=== PATIENT | female | born 1960 | race Two or more races ===

== ENCOUNTER 2023-01-22 09:11 | Inpatient (IN) | payer MEDICAID ==
[~2023-01-22] VITALS: Ht 165.1 cm; Wt 130.0 kg
[2023-01-22 10:01] LABS: Basophils # (auto) 0 10 ^3/uL (0-0.2); Basophils % (auto) 0.3 % (0.0-2.0); Eosinophils # (auto) 0 10 ^3/uL (0-0.8); Hematocrit 40.8 % (36.0-46.0); Hemoglobin 13.4 g/dL (12.2-16.2); Lymphocytes # (auto) 0.8 10 ^3/uL (0.4-5.4); Lymphocytes % (auto) 6.2 % (10.0-50.0); Mean Corpuscular Hemoglobin 30.9 pg (28.0-32.0); Mean Corpuscular Hgb Conc. 32.9 g/dL (32.0-36.0); Mean Corpuscular Volume 94.2 fL (80.0-100.0); Monocytes # (auto) 0.4 10 ^3/uL (0-1.3); Monocytes % (auto) 2.8 % (0.0-12.0); Neutrophils # (auto) 11.8 10 ^3/uL (1.6-8.6); Neutrophils % (auto) 90.7 % (37.0-80.0); Red Blood Cells 4.33 10^6/uL (4.0-5.20); Red Cell Distribution Width 14.3 % (11.8-14.3)
[2023-01-22 10:21] LABS: Alanine Aminotransferase 21 U/L (7-40); Alkaline Phosphatase 137 U/L (46-116); Anion Gap 7 (5-15); Blood Urea Nitrogen 20 mg/dL (9-23); Carbon Dioxide 27 mmol/L (20-30); Chloride 105 mmol/L (98-107); Glucose 138 mg/dL (74-106); Potassium 4.1 mmol/L (3.5-5.1); Sodium 139 mmol/L (136-145)
[2023-01-22 10:22] LABS: Aspartate Aminotransferase < 8 U/L (13-40); BUN/Creatinine Ratio 26.7 (10.0-20.0)
[2023-01-22 10:23] LABS: Bilirubin, Total 0.5 mg/dL (0.2-1.0); Total Protein 6.4 g/dL (5.7-8.2)
[2023-01-22 10:55] LABS: Albumin 4.4 g/dL (3.2-4.8)
[2023-01-22] MEDS ORDERED: SODIUM CHLORIDE 0.9% 1,000 ML IV ONE ×2 (11:45)
[2023-01-22] MEDS ORDERED: cefTRIAXone 1GM/50ML D5W 50 ML IV ONE (11:45)
[2023-01-22 11:51] VITALS: PULSE 99; RESP 18; O2SAT 100
[2023-01-22] MEDS ORDERED: DOCUSATE SOD 100 MG CAP PO PRN (13:45)
[2023-01-22] MEDS ORDERED: PANTOPRAZOLE 40 MG/10 ML VIAL INJ IV ONE (13:45)
[2023-01-22] MEDS ORDERED: HYDROcodone-ACET 5/325MG TAB PO PRN (13:45)
[2023-01-22] MEDS: SODIUM CHLORIDE 0.9% 1,000 ML IV SCH ×2 (13:45→20:31)
[2023-01-22] MEDS ORDERED: MORPHINE SULFATE INJ 2 MG/ml SYRG IV PRN (13:45)
[2023-01-22] MEDS ORDERED: ACETAMINOPHEN 325 MG TAB PO PRN (13:45)
[2023-01-22] MEDS: ONDANSETRON HCL 4 MG/2 ML VIAL IV PRN (13:55)
[2023-01-22] MEDS ORDERED: HYDRX10T PO (14:05)
[2023-01-22] MEDS ORDERED: METH2.5T PO (14:05)
[2023-01-22] MEDS ORDERED: ROSU1TAB14 PO (14:05)
[2023-01-22] MEDS ORDERED: ENAL1TAB48 PO (14:05)
[2023-01-22] MEDS ORDERED: FUR20T PO (14:05)
[2023-01-22] MEDS ORDERED: METHOTREXATE 2.5 MG TAB PO SCH (14:15)
[2023-01-22] MEDS ORDERED: HYDROmorphone HCL 2 MG/ML VL/or syr IV PRN (14:15)
[2023-01-22] MEDS: metroNIDAZOLE 500MG/100ML 100 ML IV SCH ×2 (14:37→22:45)
[2023-01-22] MEDS: ATORVASTATIN 20 MG TAB PO SCH (22:45)
[2023-01-22] MEDS: hydrOXYzine HCL 10 MG TAB PO SCH (22:46)
[2023-01-23] MEDS: SODIUM CHLORIDE 0.9% 1,000 ML IV SCH ×4 (03:29→22:43)
[2023-01-23 05:04] LABS: Basophils # (auto) 0 10 ^3/uL (0-0.2); Basophils % (auto) 0.2 % (0.0-2.0); Eosinophils # (auto) 0 10 ^3/uL (0-0.8); Eosinophils % (auto) 0.1 % (0.0-7.0); Hematocrit 36.7 % (36.0-46.0); Hemoglobin 12.2 g/dL (12.2-16.2); Lymphocytes # (auto) 1.3 10 ^3/uL (0.4-5.4); Lymphocytes % (auto) 16.1 % (10.0-50.0); Mean Corpuscular Hemoglobin 31.4 pg (28.0-32.0); Mean Corpuscular Hgb Conc. 33.4 g/dL (32.0-36.0); Mean Corpuscular Volume 94.1 fL (80.0-100.0); Monocytes # (auto) 0.3 10 ^3/uL (0-1.3); Monocytes % (auto) 3.9 % (0.0-12.0); Neutrophils # (auto) 6.5 10 ^3/uL (1.6-8.6); Neutrophils % (auto) 79.7 % (37.0-80.0); Red Cell Distribution Width 14.2 % (11.8-14.3); White Blood Cell 8.2 10^3/uL (4.4-10.8)
[2023-01-23 05:22] LABS: Alanine Aminotransferase 18 U/L (7-40); Albumin 3.7 g/dL (3.2-4.8); Alkaline Phosphatase 116 U/L (46-116); Anion Gap 5 (5-15); Aspartate Aminotransferase < 8 U/L (13-40); BUN/Creatinine Ratio 20.3 (10.0-20.0); Bilirubin, Total 0.4 mg/dL (0.2-1.0); Blood Urea Nitrogen 14 mg/dL (9-23); Calcium 8.3 mg/dL (8.7-10.4); Carbon Dioxide 27 mmol/L (20-30); Chloride 107 mmol/L (98-107); Glucose 129 mg/dL (74-106); Sodium 139 mmol/L (136-145); Total Protein 5.5 g/dL (5.7-8.2)
[2023-01-23 05:42] LABS: Triglycerides 114 mg/dL (< 150)
[2023-01-23 05:43] LABS: LDL Cholesterol 115 mg/dL (< 100)
[2023-01-23 05:44] LABS: Cholesterol 179 mg/dL (< 200); HDL Cholesterol 54 mg/dL (40-59)
[2023-01-23] MEDS: metroNIDAZOLE 500MG/100ML 100 ML IV SCH ×3 (06:09→22:47)
[2023-01-23 07:55] VITALS: PULSE 72; O2SAT 96
[2023-01-23] MEDS: cefTRIAXone 1GM/50ML D5W 50 ML IV SCH (09:11)
[2023-01-23] MEDS ORDERED: FUROSEMIDE 20 MG TAB PO SCH (10:00)
[2023-01-23] MEDS ORDERED: PATIENTS OWN MEDICATION (Enalapril Maleate 1 TAB) PO SCH (10:00)
[2023-01-23 10:16] VITALS: PULSE 66; RESP 18; O2SAT 98
[2023-01-23] MEDS: hydrOXYzine HCL 10 MG TAB PO SCH ×2 (11:20→21:39)
[2023-01-23] MEDS: PANTOPRAZOLE 40 MG/10 ML VIAL INJ IV SCH (11:20)
[2023-01-23] MEDS: ENALAPRIL MALEATE 10 MG TAB PO SCH (13:20)
[2023-01-23 14:00] VITALS: BP 130/67; PULSE 88; RESP 16; TEMP 98; O2SAT 96
[2023-01-23 17:04] VITALS: BP 110/74; PULSE 57; RESP 16; TEMP 98; O2SAT 96
[2023-01-23] MEDS ORDERED: HYDROcodone-ACET 10/325MG TAB PO PRN (19:00)
[2023-01-23] MEDS ORDERED: HYDROcodone-ACET 5/325MG TAB PO PRN (19:00)
[2023-01-23 20:00] VITALS: RESP 17; O2SAT 96
[2023-01-23 20:26] LABS: CRP High Sensitivity 10.08 mg/dL (<1.0)
[2023-01-23] MEDS: ATORVASTATIN 20 MG TAB PO SCH (21:39)
[2023-01-23 22:38] VITALS: BP 111/72; PULSE 78; RESP 18; TEMP 98.3; O2SAT 95
[2023-01-23 23:24] LABS: INR 1.12 (0.9-1.15); Partial Thromboplastin Time 26.2 SEC (24.5-34.5); Prothrombin Time 11.7 sec (9.3-11.8)
[2023-01-23 23:51] LABS: Erythrocyte Sedimentation Rate 42 mm/hr (0-20)
[2023-01-24 05:17] VITALS: BP 100/52; PULSE 74; RESP 18; TEMP 97.7; O2SAT 90
[2023-01-24] MEDS: metroNIDAZOLE 500MG/100ML 100 ML IV SCH ×2 (05:41→13:17)
[2023-01-24] MEDS: SODIUM CHLORIDE 0.9% 1,000 ML IV SCH (05:41)
[2023-01-24] MEDS: ONDANSETRON HCL 4 MG/2 ML VIAL IV PRN (06:02)
[2023-01-24 06:16] LABS: Basophils # (auto) 0 10 ^3/uL (0-0.2); Basophils % (auto) 0.2 % (0.0-2.0); Eosinophils # (auto) 0.1 10 ^3/uL (0-0.8); Hematocrit 33.4 % (36.0-46.0); Lymphocytes # (auto) 1.8 10 ^3/uL (0.4-5.4); Lymphocytes % (auto) 25.8 % (10.0-50.0); Mean Corpuscular Hemoglobin 31.4 pg (28.0-32.0); Mean Corpuscular Hgb Conc. 33.1 g/dL (32.0-36.0); Mean Corpuscular Volume 94.8 fL (80.0-100.0); Monocytes # (auto) 0.5 10 ^3/uL (0-1.3); Monocytes % (auto) 7.1 % (0.0-12.0); Neutrophils # (auto) 4.7 10 ^3/uL (1.6-8.6); Neutrophils % (auto) 65.9 % (37.0-80.0); Red Blood Cells 3.52 10^6/uL (4.0-5.20); Red Cell Distribution Width 13.9 % (11.8-14.3); White Blood Cell 7.2 10^3/uL (4.4-10.8)
[2023-01-24 06:28] LABS: INR 1.13 (0.9-1.15); Partial Thromboplastin Time 27.3 SEC (24.5-34.5); Prothrombin Time 11.8 sec (9.3-11.8)
[2023-01-24 06:33] LABS: Calcium 8.4 mg/dL (8.7-10.4); Chloride 106 mmol/L (98-107); Potassium 3.8 mmol/L (3.5-5.1); Sodium 139 mmol/L (136-145)
[2023-01-24 06:34] LABS: Anion Gap 4 (5-15); Carbon Dioxide 29 mmol/L (20-30)
[2023-01-24 06:39] LABS: Glucose 106 mg/dL (74-106)
[2023-01-24 06:40] LABS: BUN/Creatinine Ratio 12.7 (10.0-20.0); Blood Urea Nitrogen 9 mg/dL (9-23); Magnesium 1.9 mg/dL (1.6-2.6)
[2023-01-24] MEDS ORDERED: SIMETHICONE 40 MG/0.6 ML ORAL DROP ONE (07:56)
[2023-01-24 08:00] VITALS: PULSE 72; RESP 18; O2SAT 95
[2023-01-24] MEDS ORDERED: SODIUM CHLORIDE 0.9% 1,000 ML IV SCH (08:30)
[2023-01-24 09:00] VITALS: BP 144/70; PULSE 72; RESP 18; TEMP 98; O2SAT 95
[2023-01-24] MEDS: PANTOPRAZOLE 40 MG/10 ML VIAL INJ IV SCH (09:10)
[2023-01-24] MEDS: ENALAPRIL MALEATE 10 MG TAB PO SCH (09:10)
[2023-01-24] MEDS: cefTRIAXone 1GM/50ML D5W 50 ML IV SCH (09:10)
[2023-01-24] MEDS: hydrOXYzine HCL 10 MG TAB PO SCH (09:10)
[2023-01-24] MEDS ORDERED: fentaNYL CITRATE 100 MCG/2 ML VL ONE (09:36)
[2023-01-24] MEDS ORDERED: diphenhdrAMINE HCL 50 MG/1 ML VL ONE (09:36)
[2023-01-24] MEDS ORDERED: MIDAZOLAM HCL 5 MG/ML-1ML VIAL ONE (09:36)
[2023-01-24] MEDS ORDERED: LIDOCAINE VISCOUS 2% 15ML UD ONE (09:36)
[2023-01-24] MEDS ORDERED: diphenhdrAMINE HCL 50 MG/1 ML VL IV ONE (11:53)
[2023-01-24] MEDS ORDERED: MIDAZOLAM HCL 5 MG/ML-1ML VIAL IV ONE (11:53)
[2023-01-24] MEDS ORDERED: fentaNYL CITRATE 100 MCG/2 ML VL IV ONE (11:53)
[2023-01-24 12:05] VITALS: O2SAT 99
[2023-01-24 13:00] VITALS: BP 118/63; PULSE 77; RESP 19; TEMP 98.4; O2SAT 94
[2023-01-24] MEDS ORDERED: SUCR1TAB22 OR (14:05)
[2023-01-24] MEDS ORDERED: PANT40TA2 PO (14:05)
[2023-01-24 14:44] VITALS: BP 144/70; PULSE 70; RESP 18; TEMP 98.2; O2SAT 96
[2023-01-24] MEDS ORDERED: SUCRALFATE 1 GM/10 ML ORAL SUSP PO SCH (17:00)
[2023-01-24] MEDS ORDERED: SUCRALFATE 1 GM TAB PO SCH (17:00)
[2023-01-24] MEDS ORDERED: PANTOPRAZOLE 40 MG TAB PO SCH (22:00)
[2023-01-24] MEDS ORDERED: ATORVASTATIN 20 MG TAB PO SCH (22:00)
== END 2023-01-24 15:35 | disposition home or self-care (01) | DRG 241 ==
LOC: ER 09:11 → OVERFLOW 13:45 → WEST WING 01-23 09:55
PROVIDERS: ADMIT Nurse Practitioner Family; ATTEND Internal Medicine Geriatric Medicine
PROC: 0DB68ZX Excision of Stomach, Via Natural or Artificial Opening Endoscopic, Diagnostic (ICD-10-PCS; 2023-01-24)
PROC: 0DB98ZX Excision of Duodenum, Via Natural or Artificial Opening Endoscopic, Diagnostic (ICD-10-PCS; principal; 2023-01-24 11:48)
DX: K29.70 Gastritis, unspecified, without bleeding (principal); R65.10 Systemic inflammatory response syndrome (SIRS) of non-infectious origin without acute organ dysfunction; E66.01 Morbid (severe) obesity due to excess calories; D72.829 Elevated white blood cell count, unspecified; E78.5 Hyperlipidemia, unspecified; B99.8 Other infectious disease; M62.08 Separation of muscle (nontraumatic), other site; K25.9 Gastric ulcer, unspecified as acute or chronic, without hemorrhage or perforation; E86.0 Dehydration; K44.9 Diaphragmatic hernia without obstruction or gangrene; I10 Essential (primary) hypertension; K43.9 Ventral hernia without obstruction or gangrene; M06.9 Rheumatoid arthritis, unspecified; R73.03 Prediabetes; Z90.49 Acquired absence of other specified parts of digestive tract; Z88.5 Allergy status to narcotic agent; Z68.42 Body mass index [BMI] 45.0-49.9, adult; Z90.710 Acquired absence of both cervix and uterus; K45.8 Other specified abdominal hernia without obstruction or gangrene
CPT/HCPCS: 36415; 43239; 71045; 74176; 80048; 80053; 80061; 82533; 82962; 83036; 83605; 83690; 83735; 84443; 84484; 85025; 85048; 85610; 85652; 85730; 86141; 87040; 87493; 93005; 96361; 96365; 96366; 96375; C9113; G0378; J0696; J2250; J2405; J3490

== ENCOUNTER 2025-04-02 15:56 | Emergency (ER) | payer OTHER, MEDICAID ==
[~2025-04-02] VITALS: Ht 152.4 cm; Wt 113.0 kg
[~2025-04-02 15:56] MED LIST: ENAL1TAB48 PO; FURO20TA4 PO; HYDRX10T PO; METH2.5T PO; PANT40TA2 PO; ROSU20TA56 PO; SUCR1TAB31 OR
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
[2025-04-02 19:01] VITALS: BP 139/88; PULSE 68; RESP 18; TEMP 97.9; O2SAT 94
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
[2025-04-02] MEDS ORDERED: ACE3T PO (20:06)
== END 2025-04-02 20:34 | disposition home or self-care (01) ==
LOC: ER 15:56 → EDBD 15:56 → ER 20:34
DX: S92.331A Displaced fracture of third metatarsal bone, right foot, initial encounter for closed fracture (principal); S92.341A Displaced fracture of fourth metatarsal bone, right foot, initial encounter for closed fracture; S39.012A Strain of muscle, fascia and tendon of lower back, initial encounter; I10 Essential (primary) hypertension; E78.5 Hyperlipidemia, unspecified; M19.90 Unspecified osteoarthritis, unspecified site; Z79.899 Other long term (current) drug therapy; Z98.890 Other specified postprocedural states; Z90.710 Acquired absence of both cervix and uterus; Z90.49 Acquired absence of other specified parts of digestive tract; Z88.5 Allergy status to narcotic agent; V89.2XXA Person injured in unspecified motor-vehicle accident, traffic, initial encounter; Y93.89 Activity, other specified; Y92.488 Other paved roadways as the place of occurrence of the external cause; Y99.8 Other external cause status
CPT/HCPCS: 29515; 72100; 73630; 73700